=== PATIENT | male | born 1965 | race Caucasian/White ===

== ENCOUNTER 2025-03-11 14:47 | Emergency (ER) | payer MEDICAID, SELFPAY ==
[2025-03-11 14:51] VITALS: PULSE 118; RESP 18; O2SAT 95; BMI 26.5
[2025-03-11 14:53] VITALS: BP 148/94; PULSE 106; RESP 18; TEMP 36.8; O2SAT 94; BMI 25.8
[2025-03-11] MEDS: MECLIZINE HCL 25 MG TABLET 50 MG PO (15:16)
[2025-03-11] MEDS: ONDANSETRON ODT 4 MG TABRAP PO (15:17)
--- NOTE | 2025-03-11 15:25 | EDNOTE_ITS ---
ED General RME/HPI General Chief complaint: Alcohol Stated complaint: DIZZINESS Time Seen by Provider: 03/11/25 14:57 Arrival date/time: 03/11/25 14:47 RME / HPI RME / HPI narrative: DR. TOURE MAIN ED EVALUATION: 59 yaer old male presents to the Emergency Department [facility] with complaints of generalized weakness and dizziness since this morning, sudden onset. He was seen walking by EMS but the gait is unstable. Patient states he feels woozy but denies any vertigo. He also states that he has been drinking this morning, a couple of bloody Jenna's . Blood glucose per EMS was 137. No nausea or vomiting. Denies blood thinners. PMHx: Hypertension and anxiety. Social Hx: Alcoholism Related Data Previous Rx's ?Medication ?Instructions ?Recorded Hydrocodone/Acetaminophen * (NORCO 1 tab PO Q6H PRN 20 #20 tabs 07/24/15 5/325 *) meclizine 50 mg tablet 50 mg PO BID PRN vertigo #10 tabs 03/11/25 ondansetron 4 mg disintegrating 4 mg PO Q8H PRN nausea and 03/11/25 tablet vomiting #7 tabs Allergies Allergy/AdvReac Type Severity Reaction Status Date / Time NKA* Allergy Uncoded 07/24/15 09:29 Review of Systems Review of Systems Systems Reviewed: All systems reviewed, normal except as documented Past Medical History Social History SMOKING STATUS: Unknown if ever smoked SUBSTANCE USE: unknown ALCOHOL: Current ED Exam Narrative Physical exam: GENERAL APPEARANCE: AxOx4, generally well-appearing, no acute distress. HEENT: NC, AT. MMM. EOMI, clear conjunctiva, oropharynx clear. NECK: Supple without lymphadenopathy. No stiffness or restricted ROM. HEART: Normal rate and regular rhythm, normal S1/S1, no m/r/g LUNGS: CTAB, moving air well. No crackles or wheezes are heard. ABDOMEN: Soft, nontender, nondistended with good bowel sounds heard. BACK: No midline C/T/L spine pain or deformity, No CVAT, no obvious deformity. EXTREMITIES: Without cyanosis, clubbing or edema. MUSCULOSKELETAL: FROM of all major joints, no chest tenderness NEUROLOGICAL: Grossly nonfocal. Alert and oriented, moving all 4 extremities. CN not formally tested but appear grossly intact. Skin: Warm and dry without any rash. Course Quality Measures none Orders Category Date Time Status Bedside Blood Glucose NOW Care 03/11/25 15:00 Completed Meclizine HCl [Antivert] Med 03/11/25 15:00 Discontinued 50 mg PO X1 ONE Ondansetron Odt [Zofran Odt] Med 03/11/25 15:00 Discontinued 4 mg PO X1 ONE Reevaluation(s) Reevaluation #1: Patient's symptoms have resolved after the meclizine. Normal gait. Patient remains clinically stable throughout the emergency department visit. Re- assessment at the time of disposition demonstrates that the patient is in no acute distress. We reviewed all the results, analysis, and treatment plans. Patient is amenable to discharge. Strict return precautions were outlined. Patient was discharged in stable condition. Time: 16:15 Vital Signs Vital signs: Vital Signs Temperature 98.3 F 03/11/25 14:53 Pulse Rate 106 H 03/11/25 14:53 Respiratory Rate 18 03/11/25 14:53 Blood Pressure 148/94 H 03/11/25 14:53 Pulse Oximetry (%) 94 L 03/11/25 14:53 Oxygen Delivery Method Room Air 03/11/25 14:53 Discharge Plan Plan Patient Disposition: HOME (Self Care) Prescriptions/Referrals Prescriptions/Med Rec: New meclizine 50 mg tablet 50 mg PO BID PRN (Reason: vertigo) Qty: 10 0RF ondansetron 4 mg tablet,disintegrating 4 mg PO Q8H PRN (Reason: nausea and vomiting) Qty: 7 0RF No Action Hydrocodone/Acetaminophen * (NORCO 5/325 *) 1 TAB tablet 1 tab PO Q6H PRN (Reason: 20) Qty: 20 0RF Problem List Clinical Impression: Vertigo, Allergic sinusitis, Alcohol dependence Patient/Caregiver Discharge Instructions Education Materials: Alcoholism Resources, ED Allergic Rhinitis, ED Vertigo, Unspecified Additional Instructions: You can take [id number] Claritin as directed for the next week. Do not drink alcohol in excess, consider stopping alcohol completely for better health. Follow-up with your primary care doctor in 2 to 3 days if symptoms are not improving. You can return to the emergency department sooner if symptoms worsen or if you notice any new, concerning issues. Print Language: Swedish Stand Alone Forms: Radha Award Info., Patient Portal Info Letter MDM Narrative [facility] hospital course: I, Izabela Zeferino, am scribing for and in the presence of Dr. Toure. Clinical Information Provided by patient and EMS Medical Records Reviewed EMS Meds/Rx Considered, not Ordered None Labs/Rad/Tests considered, not Ordered None Chronic Illness/Social Conditions Add or document further as needed: PMHx: Hypertension and anxiety. Social Hx: Alcoholism Medication Administration(s) Medication Administration History Discontinued Medications Meclizine HCl (Meclizine Hcl 25 Mg Tablet) 50 mg PO X1 ONE Stop: 03/11/25 15:01 Last Admin: 03/11/25 15:16 Dose: 50 mg Documented By: INOCENTE Ondansetron HCl (Ondansetron Odt 4 Mg Tabrap) 4 mg PO X1 ONE; Protocol Stop: 03/11/25 15:01 Last Admin: 03/11/25 15:17 Dose: 4 mg Documented By: INOCENTE Diagnosis Differential diagnosis: alcohol intoxication, TIA, vertigo Most likely dx, and/or detailed dx discussion: Vertigo Allergic sinusitis Alcohol dependence Dispositon Disposition: Discharge Home
[2025-03-11 16:34] VITALS: BP 157/77; PULSE 91; RESP 16; TEMP 36.9; O2SAT 99
== END 2025-03-11 16:34 | disposition home or self-care (01) ==
LOC: SERX 16:31
PROVIDERS: Emergency Provider Emergency Medicine; PCP Family Medicine
DX: R42 Dizziness and giddiness (principal); J30.9 Allergic rhinitis, unspecified; F10.20 Alcohol dependence, uncomplicated; I10 Essential (primary) hypertension; F41.9 Anxiety disorder, unspecified
CPT/HCPCS: 99282; Q0162; A9270